=== PATIENT | male | born 1990 | race Caucasian/White ===

== ENCOUNTER 2017-11-11 05:08 | Emergency (ER) | payer OTHER ==
[~2017-11-11] VITALS: Ht 182.9 cm; Wt 79.4 kg
[~2017-11-11 05:08] MED LIST: CLEOCIN HCL150 MG PO; KEFLEX500 MG PO
== END 2017-11-11 06:10 | disposition home or self-care (01) ==
LOC: ER 05:08
DX: M25.532 Pain in left wrist (principal); M25.522 Pain in left elbow; M79.632 Pain in left forearm

== ENCOUNTER 2018-12-17 12:53 | Emergency (ER) | payer OTHER ==
[~2018-12-17] VITALS: Ht 182.9 cm; Wt 74.8 kg
[2018-12-17 13:44] VITALS: BP 102/72
[2018-12-17] MEDS ORDERED: VENTOLIN HFA 1818 GM INH (14:17)
[2018-12-17] MEDS ORDERED: PREDNISONE 20 M20 MG PO (14:17)
== END 2018-12-17 14:30 | disposition home or self-care (01) ==
LOC: ER 12:53
DX: J45.901 Unspecified asthma with (acute) exacerbation (principal); F17.210 Nicotine dependence, cigarettes, uncomplicated

== ENCOUNTER 2021-05-23 08:14 | Emergency (ER) | payer OTHER ==
[~2021-05-23] VITALS: Ht 182.9 cm; Wt 77.1 kg
[~2021-05-23 08:14] MED LIST changes: +PREDNISONE 20 M20 MG PO; +VENTOLIN HFA 1818 GM INH
[2021-05-23 08:49] LABS: HEMOGLOBIN 15.4 gm/dL (14.0-18.0); MCH 29.6 pg (26.0-34.0); MCHC 34.3 g/dL (28.0-37.0); MCV 86.4 fL (80.0-100.0); RBC 5.21 mil/uL (4.50-6.00); RDW 12.3 % (10.5-14.5); WBC 14.7 thou/uL (4.0-11.0)
[2021-05-23 09:17] LABS: CALCIUM 9.6 mg/dL (8.5-10.1); CREATININE 1.1 mg/dL (0.7-1.3); POTASSIUM 3.5 mmol/L (3.5-5.1)
[2021-05-23 09:23] LABS: ALBUMIN 3.9 g/dL (3.4-5.0); TOTAL BILIRUBIN 0.6 mg/dL (0.2-1.0)
[2021-05-23 11:10] LABS: URINE BILIRUBIN NEGATIVE (Negative); URINE BLOOD NEGATIVE (Negative); URINE CLARITY CLEAR; URINE COLOR YELLOW; URINE GLUCOSE-RANDOM* NEGATIVE (Negative); URINE KETONES 1+ (Negative); URINE LEUKOCYTES-REFLEX NEGATIVE (Negative); URINE NITRITE-REFLEX NEGATIVE (Negative); URINE PROTEIN (DIPSTICK) TRACE (Negative); URINE SPECIFIC GRAVITY >= 1.030 (1.005-1.035)
[2021-05-23 11:22] LABS: AMP/METHAMP POSITIVE (Negative); BARBITURATES Negative (Negative); BENZODIAZEPINES Negative (Negative); COCAINE Negative (Negative); METHADONE Negative (Negative); OPIATES POSITIVE (Negative); PCP Negative (Negative)
[2021-05-23 11:25] VITALS: BP 134/85
--- NOTE | 2021-05-23 13:02 | EKG ---
[address] [address] ELECTROCARDIOGRAM REPORT Name: SUSANNAH WISE V Room #: [facility]#: [id number] Admission: 05/23/21 Attend Phys: Discharge: 05/23/21 Date of : 88 Report #: [id number] [facility] ED Test Date: 2021-05-23 Test Time: 08:30:43 Pat Name: SUSANNAH WISE Department: Room: Gender: M [employer]: [birth year] Requested By: Efrain Roldan Order Number: [id number] MD: Won Myers Measurements Intervals [place] Rate: 75 P: 32 WA: 146 QRS: 54 QRSD: 107 T: 30 QT: 403 QTc: 451 Interpretive Statements Sinus rhythm Compared to ECG 10/12/2008 21:11:23 Short [place] interval no longer present Myocardial infarct finding no longer present Electronically Signed On 05-23-2021 13:01:56 CDT by Won Myers [email or web address] <ELECTRONICALLY SIGNED> By: Won Myers MD, [facility] 05/23/21 1301 0830 0830 Won Myers MD, FACFanny /EPI
== END 2021-05-23 11:25 | disposition home or self-care (01) ==
LOC: ER 08:14
PROVIDERS: Emergency Medicine
DX: T40.2X1A Poisoning by other opioids, accidental (unintentional), initial encounter (principal); Z20.822 Contact with and (suspected) exposure to COVID-19; Z71.51 Drug abuse counseling and surveillance of drug abuser; F17.210 Nicotine dependence, cigarettes, uncomplicated; R40.0 Somnolence; Z79.899 Other long term (current) drug therapy; Z79.51 Long term (current) use of inhaled steroids; Y92.89 Other specified places as the place of occurrence of the external cause